=== PATIENT | female | born 2000 | race Caucasian/White ===

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

== ENCOUNTER → 2021-03-02 11:24 | Outpatient (CLI) | payer MEDICAID, SELFPAY ==
[2021-03-06 16:22] LABS: HSV Culture Without Typing NEGATIVE (.)
== END ==
PROVIDERS: PCP Pediatrics; Referring Provider Obstetrics & Gynecology; Visit Provider Obstetrics & Gynecology
DX: Z11.3 Encounter for screening for infections with a predominantly sexual mode of transmission (principal)
CPT/HCPCS: 87255

== ENCOUNTER → 2021-12-13 | Outpatient (CLI) | payer MEDICAID, SELFPAY ==
[2021-12-13 13:47] LABS: HIV - WCH Non-Reactive (Nonreactive); Hepatitis C Antibody Non-Reactive (Nonreactive); Syphilis Antibodies Non-reactive
[2021-12-14 20:21] LABS: HSV 1 IgG < 0.91 index (0.00-0.90); HSV 2 IgG 1.26 index (0.00-0.90)
[2021-12-14 22:06] LABS: Chlamydia By Nucleic Acid AMP Negative (Negative)
[2021-12-15 08:25] LABS: Gonococcus By Nucleic Acid AMP Negative (Negative)
[2021-12-16 11:11] LABS: HSV Culture Without Typing Positive (.)
== END | disposition home or self-care (01) ==
PROVIDERS: Referring Provider Nurse Practitioner Women's Health; Visit Provider Nurse Practitioner Women's Health
DX: N90.89 Other specified noninflammatory disorders of vulva and perineum (principal); Z20.2 Contact with and (suspected) exposure to infections with a predominantly sexual mode of transmission
CPT/HCPCS: 36415; 86695; 86696; 86703; 86780; 86803; 87255; 87491; 87591

== ENCOUNTER → 2023-03-12 | Outpatient (CLI) | payer MEDICAID, SELFPAY ==
[2023-03-17 20:19] LABS: HPV Reflexed? NOT INDICATED
== END | disposition home or self-care (01) ==
LOC: LABSPEC 11:35
PROVIDERS: Referring Provider Registered Nurse; Visit Provider Registered Nurse
DX: Z01.419 Encounter for gynecological examination (general) (routine) without abnormal findings (principal)
CPT/HCPCS: 88175; G0145

== ENCOUNTER → 2024-01-20 | Outpatient (CLI) | payer OTHER, SELFPAY ==
--- NOTE | 2024-01-20 14:04 | US_ITS ---
STUDY: ULTRASOUND OF THE FEMALE PELVIS - COMPLETE REASON FOR EXAM: Female, 23 years old. AUB while on contraception LMP: Unknown. TECHNIQUE: Transabdominal and Transvaginal TECHNICAL QUALITY: Adequate. COMPARISON: None. FINDINGS: The uterus is anteverted and is in a midline position. The uterus measures 8.6 cm x 5 cm x 3.8 cm. Normal uterine cervix. The endometrium measures 4 mm in thickness, and is hyperechoic. There is no demonstrated endometrial mass. There is no demonstrated myometrial mass. I.U.D. - The patient does not have an I.U.D. The right ovary is visualized. The right ovary measures 2.4 cm x 1.6 cm x 2.6 cm. There is no right ovarian cyst or ovarian mass. There is no visualized right adnexal mass or complex lesion. There is normal arterial and normal venous vascularity. The left ovary is non-visualized. There is no fluid in the cul-de-sac. The pre void volume of the bladder was 162 ml. Polycystic ovary disease: No. US/Pelvic w/ Transvaginal IMPRESSION: Normal female pelvis. The left ovary was not visualized due to overlying bowel gas. Electronically Signed: Partha Bryson MD at 15:44 EDT ,
== END | disposition home or self-care (01) ==
LOC: US 14:03
PROVIDERS: PCP Nurse Practitioner Family; Referring Provider Nurse Practitioner Family; Visit Provider Nurse Practitioner Family
DX: N93.9 Abnormal uterine and vaginal bleeding, unspecified (principal)
CPT/HCPCS: 76830; 76856